=== PATIENT | female | born 1975 | race Caucasian/White ===

== ENCOUNTER 2020-05-10 20:15 | Emergency (ER) | payer BC, MEDICAID, SELFPAY ==
[2020-05-10 20:30] VITALS: BP 139/103; PULSE 72; RESP 15; TEMP 36.7; O2SAT 98; BMI 45.1
--- NOTE | 2020-05-10 20:45 | HMH.EDUTC ---
[facility] [place] Clinical Impression: Encounter for laboratory testing for COVID-19 virus Disposition: Home, Self-Care Condition on Discharge: Good Instructions: Preventing the Spread of Coronavirus Discharge Instructions Additional Instructions: *Monitor Temp, Over the counter Motrin or Tylenol as directed/as needed Tylenol every 4 hours and Motrin every 6 hours (as long as your family doctor has told you that you can take it) for fever or pain. and straight to ER if unable to lower temp less than 101.0 after medication given *Warm salt water gargles may help to soothe the throat *Throat Lozenges *Warm fluids like tea with honey may help to soothe the throat *Sleep elevated *Humidifier/Vaporizer *Flonase 2 sprays in each nostril daily but be aware that it may take 2-3 days before you notice improvement Follow up IMMEDIATELY for new or worsening symptoms or no Noticeable improvement over the next 48-72 hours. 911 for difficulty breathing or swallowing Your blood pressure was up in the clinic today make sure to follow up with your family Doctor for further evaluation You was tested for today for COVID19 your test result should be back later this evening, you may call back later this evening to see if your test results are back and the result [phone] You was given a handout with instructions for Self Quarantine and Self isolation for while you wait on test results and what to do if they are positive Referrals: Sheng Felipe [Primary Care Provider] - As needed Forms: Work/School Release Time of Disposition: 20:49 Medical Decision Making - Anthony Inquiry Pt receiving controlled substance: No Anthony was queried for this patient: No Vital Signs: 05/10/20 20:30 Temperature 98.0 F Temperature Source Oral Pulse Rate [Right Brachial] 72 Respiratory Rate 15 Blood Pressure [Right Arm] 139/103 H Blood Pressure Mean [Right Arm] 115 Blood Pressure Source [Right Arm] Automatic Cuff Blood Pressure Position [Right Arm] Sitting 02 Sat by Pulse Oximetry 98 Oxygen Delivery Method Room Air [facility] [place] HPI - General Stated complaint: wants Covid test Time Seen by Provider: 05/10/20 20:45 Mode of Arrival: Ambulatory Source of Information: Patient Limitations: No Limitations Description of Symptoms (Recalled from Triage Doc. 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 and noticed earlier today that she wasnt able to taste anything States that she thought at first it may have been allergies but then she eat a salty chip and couldnt taste it, started having runny nose and cough along with headache so she come in to get tested - Related Data Home Medications Medication Instructions Recorded Confirmed albuterol sulfate 90 mcg/actuation INHALATION 25 Days #9 g 05/14/18 07/11/18 aerosol inhaler meloxicam 15 mg tablet 15 mg PO 30 Days tab 05/14/18 07/11/18 budesonide-formoterol HFA 160 INHALATION 30 Days #10 g 07/11/18 07/11/18 mcg-4.5 mcg/actuation aerosol inhaler dextroamphetamine-amphetamine ER PO 30 Days #60 cap 07/11/18 07/11/18 20 mg 24hr capsule,extend release furosemide 20 mg tablet PO 30 Days #30 tab 07/11/18 07/11/18 montelukast 10 mg tablet PO 90 Days #90 tab 07/11/18 07/11/18 Previous Rx's Medication Instructions Recorded ibuprofen 200 mg tablet 200 mg PO ONCE #4 tab 07/11/18 naproxen 500 mg tablet 500 mg PO BID #60 tab 07/11/18 phentermine 37.5 mg tablet 37.5 mg PO DAILY #30 tab 07/11/18 Allergies Allergy/AdvReac Type Severity Reaction Status Date / Time No Known Allergies Allergy Verified 07/11/18 09:59 - Worker's Comp I
[2020-05-10 20:50] VITALS: BP 139/103; PULSE 72; RESP 15; TEMP 36.7; O2SAT 98
== END 2020-05-10 20:57 | disposition home or self-care (01) ==
PROVIDERS: Emergency Provider Nurse Practitioner; PCP Internal Medicine
DX: Z20.828 Contact with and (suspected) exposure to other viral communicable diseases (principal)
CPT/HCPCS: 99201; U0003

== ENCOUNTER 2025-02-14 06:05 | Outpatient (CLI) | payer BC, MEDICAID, SELFPAY ==
--- OUTSIDE RECORDS SUMMARY | 2025-01-16 13:45 | XMS_ITS | Encounter Summary ---
[facility] Organization [facility] Address [address] [place] [address] Care Team Providers Care Program Manager Rn Name Role Phone Sheng Felipe MD Primary Care Provider [phone] Reason for Visit * Reason Comments ADHD Med f/u Encounter Details Date Type Department Care Team (Late st Contact Info) Description 01/16/2025 1:45 PM EDT Office Visit [facility] [address] [place] [address] [place] [phone] Sheng Felipe MD [address] [place] [address] [place] [address] Attention deficit hyperactivity disorder (ADHD), combined type (Primary Dx); Prediabetes; Class 3 severe obesity due to excess calories without serious comorbidity with body mass index (BMI) of 40.0 to 44.9 in adult Social History Tobacco Use Types Packs/Day Years Used Date Smoking Tobacco: Former Cigarettes 0.3 15 2011 Smokeless Tobacco: Never Alcohol Use Standard Drinks/Week Comments No 0 (1 standard drink = 0.6 oz pur e alcohol) PHQ-2 Answer Date Recorded Retired PHQ-9: Brief Depression Severity Measure Score 0 04/03/2023 PHQ-2 Answer Date Recorded Patient Health Questionnaire-2 Score 0 09/15/2024 Comments No Sex and Gender Information Value Date Recorded Sex Assigned at Not on file Legal Sex Female 4:47 PM EST Gender Identity Not on file Sexual Orientation Not on file documented as of this encounter Last Filed Vital Signs Vital Sign Reading Time Taken Comments Blood Pressure 118/82 01/16/2025 1:40 PM EDT Pulse 83 01/16/2025 1:40 PM EDT Temperature 36.3 C (97.3 F) 01/16/2025 1:40 PM EDT Respiratory Rate 18 01/16/2025 1:40 PM EDT Oxygen Saturation 99% 01/16/2025 1:40 PM EDT Inhaled Oxygen Concentration - - Weight 117 kg (258 lb) 01/16/2025 1:40 PM EDT Height 167.6 cm (5' 6 ) 01/16/2025 1:40 PM EDT Body Mass Index 41.64 01/16/2025 1:40 PM EDT documented in this encounter Progress Notes * Sheng Felipe MD - 01/16/2025 7:47 PM EDTAssociated Problem(s): Attention deficit hyperactivity disorder (ADHD), combined type Maintaining ongoing satisfactory control of her ADHD combined type taking Adderall XR 30 mg every morning and short acting Adderall 10 mg q. noon, good duration of clinical effect with no significantside effects. UDS and controlled substance agreement up-to-date and appropriate from 08/2024. Kasperscreen appropriate. Plan continue current regimen with refills given. Reassess clinically in 3 months. * Sheng Felipe MD - 01/16/2025 7:46 PM EDTAssociated Problem(s): Prediabetes Very nice clinical response regarding her diabetes/prediabetes with most recent hemoglobin A1c 5.2%in 08/2024 taking most recently Zepbound 10 mg subcu weekly transitioning over to Wegovy 1 mg subcu weekly. Continue current regimen of healthy lifestyle efforts including diet and exercise. Plan repeat hemoglobin A1c at follow-up visit in 3 months. * Sheng Felipe MD - 01/16/2025 7:45 PM EDTAssociated Problem(s): Obesity Long standing struggles with morbid obesity, status post Star-en-Y bariatric surgery in 2003, most recently having been prescribed Zepbound 10 mg subcu weekly. She has been advised by insurance company that she now must switch over to Wegovy which will initiate at medium dose of 1 mg nightly relative to the prior Zepbound 10 mg dose, advising of side effect potential as well as mechanism of action being similar to the Zepbound. Continue healthy lifestyle efforts with diet and exercise. Reassessclinically in 1 month, advising if any concerns in the interim. * Sheng Felipe MD - 01/16/2025 1:45 PM EDT Images from the original note were not included. Follow Up Office Visit Date: 01/16/2025 Patient Name: Sherman Pacheco : 1975 Chief Complaint: Chief Complaint Patient presents with ADHD Med f/u History of Present Illness: Sherman Pacheco is a 49 y.o. female who is here today for 2-month review of her combined type ADHD for which she takes Adderall XR 30 mg every morning and 10 short acting 10 mgq. noon, having 11 or 12 hours of good control of symptoms with no significant side effects causingimproved quality of her life. Urine drug screen and controlled substance agreement up-to-date and ap propriate from 08/2024. Also has obesity for which she originally had a Star-en-Y procedure in 2003,most recently Mounjaro 10 mg subcu weekly, insurance now requires she switched to Wegovy. In general she has good appetite suppression with no side effects of the medication. She has lost 2 pounds ofweight in the last 2 months now. Also has a history of asthma taking Symbicort and singular prophylaxis, doing well with no recent flare for 2 months now, insurance not covering previously prescribedSpiriva thus not taking. She is a prediabetic with most recent hemoglobin A1c normalized to 5.2% in08/2024, albeit noting that she does take GLP-1/GIP agonist.. Subjective Review of Systems: Review of Systems I have reviewed the patients family history, social history, past medical history, past surgical history and have updated it as appropriate. Medications: Current Outpatient Medications: albuterol (PROVENTIL) (2.5 MG/3ML) 0.083% nebulizer solution, TAKE 2.5 MG BY NEBULIZATION EVERY 4 (FOUR) HOURS NEEDED FOR WHEEZING., Disp: 150 mL, Rfl: 1 albuterol sulfate HFA (Ventolin HFA) 108 (90 Base) MCG/ACT inhaler, INHALE 2 PUFFS BY MOUTH EVERY 4HOURS NEEDED FOR WHEEZE, Disp: 90 g, Rfl: 2 amphetamine-dextroamphetamine (Adderall) 10 MG tablet, Take at noon time in conjunction with her Adderall XR 30 mg in the morning, Disp: 30 tablet, Rfl: 0 amphetamine-dextroamphetamine XR (Adderall XR) 30 MG 24 hr capsule, Take 1 capsule by mouth Every Morning In conjunction with her Adderall 10 mg at noon, Disp: 30 capsule, Rfl: 0 budesonide-formoterol (Symbicort) 160-4.5 MCG/ACT inhaler, Inhale 2 puffs 2 (Two) Times a Day. Rinse mouth with water after use, Disp: 10.2 g, Rfl: 12 buPROPion XL (WELLBUTRIN XL) 300 MG 24 hr tablet, Take 1 tablet by mouth Daily., Disp: , Rfl: celecoxib (CeleBREX) 200 MG capsule, TAKE 1 CAPSULE BY MOUTH EVERY DAY, Disp: 30 capsule, Rfl: 1 dexlansoprazole (DEXILANT) 60 MG capsule, Take 1 capsule by mouth Daily., Disp: , Rfl: Diclofenac Sodium (VOLTAREN) 1 % gel gel, Apply 4 g topically to the appropriate area as directed 4(Four) Times a Day As Needed (pain)., Disp: 150 g, Rfl: 1 famotidine (PEPCID) 20 MG tablet, take 1 tablet by mouth every day at bedtime for 30 days, Disp: , Rfl: fluticasone (FLONASE) 50 MCG/ACT nasal spray, SPRAY 2 SPRAYS INTO EACH NOSTRIL EVERY DAY DIRECTED NEEDED FOR ALLERGIES, Disp: 18.2 g, Rfl: 3 hydrocortisone 2.5 % cream, Apply 1 Application topically to the appropriate area as directed 2 (Two) Times a Day., Disp: 60 g, Rfl: 1 Levonorgestrel (MIRENA, 52 MG, IU), 1 Device by Intrauterine route., Disp: , Rfl: loratadine (CLARITIN) 10 MG tablet, TAKE 1 TABLET BY MOUTH EVERY DAY, Disp: 30 tablet, Rfl: 11 montelukast (SINGULAIR) 10 MG tablet, TAKE 1 TABLET BY MOUTH EVERY DAY AT NIGHT, Disp: 90 tablet, Rfl: 3 mupirocin (BACTROBAN) 2 % cream, Apply 1 Application topically to the appropriate area as directed 3 (Three) Times a Day., Disp: 22 g, Rfl: 1 mupirocin (BACTROBAN) 2 % ointment, Apply 1 Application topically to the appropriate area as directed 3 (Three) Times a Day., Disp: 15 g, Rfl: 1 pantoprazole (Protonix) 40 MG EC tablet, Take 1 tablet by mouth Daily., Disp: 180 tablet, Rfl: 3 spironolactone (ALDACTONE) 100 MG tablet, TAKE 1 TABLET BY MOUTH EVERY DAY, Disp: 90 tablet, Rfl: 3 Tiotropium [place] Monohydrate (Spiriva Respimat) 1.25 MCG/ACT aerosol solution inhaler, Inhale 2 puffs Daily., Disp: 18 g, Rfl: 3 vitamin D (ERGOCALCIFEROL) 1.25 MG (34750 UT) capsule capsule, Take 1 capsule by mouth 1 (One) TimePer Week., Disp: 13 capsule, Rfl: 3 Semaglutide-Weight Management (Wegovy) 1 MG/0.5ML solution auto-injector, Inject 0.5 mL under the skin into the appropriate area as directed 1 (One) Time Per Week., Disp: 2 mL, Rfl: 0 Allergies: No Known Allergies Objective Physical Exam: Please see above Vital Signs: Vitals: 01/16/25 1340 BP: 118/82 BP Location: Left arm Patient Position: Sitting Cuff Size: Adult Pulse: 83 Resp: 18 Temp: 97.3 ??F (36.3 ??C) TempSrc: Temporal SpO2: 99% Weight: 117 kg (258 lb) Height: 167.6 cm (66 ) Body mass index is 41.64 kg/m??. Physical Exam Constitutional: General: She is not in acute distress. Appearance: Normal appearance. She is obese. She is not ill-appearing. Comments: Pleasant, healthy, NAD, BMI 41.6 reflecting a 2 pound weight loss in the last 2 months Cardiovascular: Rate and Rhythm: Normal rate and regular rhythm. Heart sounds: Normal heart sounds. No murmur heard. No friction rub. No gallop. Pulmonary: Effort: Pulmonary effort is normal. No respiratory distress. Breath sounds: Normal breath sounds. Musculoskeletal: Right lower leg: No edema. Left lower leg: No edema. Neurological: Mental Status: She is alert. Procedures Results: Labs: Hemoglobin A1C Date Value Ref Range Status 09/15/2024 5.2 4.5 - 5.7 % Final TSH Date Value Ref Range Status 09/15/2024 1.530 0.450 - 4.500 uIU/mL Final POCT Results (if applicable): Results for orders placed or performed in visit on 09/15/24 POC Glycosylated Hemoglobin (Hb A1C) Collection Time: 09/15/24 11:00 AM Specimen: Blood Result Value Ref Range Hemoglobin A1C 5.2 4.5 - 5.7 % Lot Number [id number] Expiration Date 05/07/2026 POC Glucose, Blood Collection Time: 09/15/24 11:01 AM Specimen: Blood Result Value Ref Range Glucose 110 70 - 130 mg/dL Lot Number [id number] Expiration Date 02/28/2025 Urinalysis With Culture If Indicated - Urine, Clean Catch Collection Time: 09/15/24 11:02 AM Specimen: Urine, Clean Catch Urine Release to hugo Result Value Ref Range Specific [place], UA 1.017 1.005 - 1.030 pH, UA 7.0 5.0 - 7.5 Color, UA Yellow Yellow Appearance, UA Clear Clear Leukocytes, UA Negative Negative Protein Negative Negative/Trace Glucose, UA Negative Negative Ketones Negative Negative Blood, UA Negative Negative Bilirubin, UA Negative Negative Urobilinogen, UA 1.0 0.2 - 1.0 mg/dL Nitrite, UA Negative Negative Microscopic Examination Comment Microscopic Examination See below: Urinalysis Reflex Comment Microscopic Examination - Collection Time: 09/15/24 11:02 AM Urine Release to hugo Result Value Ref Range WBC, UA None seen 0 - 5 /hpf RBC, UA None seen 0 - 2 /hpf Epithelial Cells (non renal) 0-10 0 - 10 /hpf Casts None seen None seen /lpf Bacteria, UA None seen None seen/Few Urine Drug Screen - Urine, Clean Catch Collection Time: 09/15/24 11:03 AM Specimen: Urine, Clean Catch Urine Release to hugo Result Value Ref Range Amphetamine, Urine Qual Positive (A) Axpzna=9760 ng/mL Barbiturates Screen, Urine Negative Qnzfek=056 ng/mL Benzodiazepine Screen, Urine Negative Vrtqid=811 ng/mL THC Screen, Urine Negative Cutoff=20 ng/mL Cocaine Screen, Urine Negative Prhgar=555 ng/mL Opiate Screen, Urine Negative Mwzzwb=808 ng/mL Oxycodone/Oxymorphone, Urine Negative Hghlwn=221 ng/mL Phencyclidine (PCP), Urine Negative Cutoff=25 ng/mL Methadone Screen, Urine Negative Kvuhsg=497 ng/mL Propoxyphene Screen Negative Ekruqh=637 ng/mL Creatinine, Urine 53.6 20.0 - 300.0 mg/dL pH, UA 6.5 4.5 - 8.9 Please note Comment Vitamin B12 Collection Time: 09/15/24 11:03 AM Specimen: Arm, Left; Blood Blood Release to hugo Result Value Ref Range Vitamin B-12 376 232 - 1,245 pg/mL TSH Rfx On Abnormal To Free T4 Collection Time: 09/15/24 11:03 AM Specimen: Arm, Left; Blood Blood Release to hugo Result Value Ref Range TSH 1.530 0.450 - 4.500 uIU/mL Folate Collection Time: 09/15/24 11:03 AM Specimen: Arm, Left; Blood Blood Release to hugo Result Value Ref Range Folate 5.1 >3.0 ng/mL Vitamin D,25-Hydroxy Collection Time: 09/15/24 11:03 AM Specimen: Arm, Left; Blood Blood Release to hugo Result Value Ref Range 25 Hydroxy, Vitamin D 8.3 (L) 30.0 - 100.0 ng/mL Lipid Panel Collection Time: 09/15/24 11:03 AM Specimen: Arm, Left; Blood Blood Release to hugo Result Value Ref Range Total Cholesterol 135 100 - 199 mg/dL Triglycerides 88 0 - 149 mg/dL HDL Cholesterol 50 >39 mg/dL VLDL Cholesterol Tushar 17 5 - 40 mg/dL LDL Chol Calc (NIH) 68 0 - 99 mg/dL Comprehensive Metabolic Panel Collection Time: 09/15/24 11:03 AM Specimen: Arm, Left; Blood Blood Release to hugo Result Value Ref Range Glucose 82 70 - 99 mg/dL BUN 16 6 - 24 mg/dL Creatinine 0.86 0.57 - 1.00 mg/dL EGFR Result 83 >59 mL/min/1.73 BUN/Creatinine Ratio 19 9 - 23 Sodium 142 134 - 144 mmol/L Potassium 4.2 3.5 - 5.2 mmol/L Chloride 106 96 - 106 mmol/L Total CO2 23 20 - 29 mmol/L Calcium 8.8 8.7 - 10.2 mg/dL Total Protein 6.9 6.0 - 8.5 g/dL Albumin 4.3 3.9 - 4.9 g/dL Globulin 2.6 1.5 - 4.5 g/dL Total Bilirubin 0.3 0.0 - 1.2 mg/dL Alkaline Phosphatase 118 44 - 121 IU/L AST (SGOT) 19 0 - 40 IU/L ALT (SGPT) 16 0 - 32 IU/L POC Albumin/Creatinine Ratio Urine Collection Time: 09/15/24 11:24 AM Specimen: Urine Result Value Ref Range POC ALBUMIN, URINE 10 mg/L POC CREATININE, URINE 50 mg/dL POC Urine Albumin Creatinine Ratio <30 <30 Lot Number [id number] Expiration Date 11/20/2025 Assessment / Plan Assessment/Plan: Diagnoses and all orders for this visit: 1. Attention deficit hyperactivity disorder (ADHD), combined type (Primary) Assessment & Plan: Maintaining ongoing satisfactory control of her ADHD combined type taking Adderall XR 30 mg every morning and short acting Adderall 10 mg q. noon, good duration of clinical effect with no significantside effects. UDS and controlled substance agreement up-to-date and appropriate from 08/2024. Kasperscreen appropriate. Plan continue current regimen with refills given. Reassess clinically in 3 months. Orders: - amphetamine-dextroamphetamine (Adderall) 10 MG tablet; Take at noon time in conjunction with her Adderall XR 30 mg in the morning Dispense: 30 tablet; Refill: 0 - amphetamine-dextroamphetamine XR (Adderall XR) 30 MG 24 hr capsule; Take 1 capsule by mouth EveryMorning In conjunction with her Adderall 10 mg at noon Dispense: 30 capsule; Refill: 0 2. Prediabetes Assessment & Plan: Very nice clinical response regarding her diabetes/prediabetes with most recent hemoglobin A1c 5.2%in 08/2024 taking most recently Zepbound 10 mg subcu weekly transitioning over to Wegovy 1 mg subcu weekly. Continue current regimen of healthy lifestyle efforts including diet and exercise. Plan repeat hemoglobin A1c at follow-up visit in 3 months. 3. Class 3 severe obesity due to excess calories without serious comorbidity with body mass index (BMI) of 40.0 to 44.9 in adult Assessment & Plan: Long standing struggles with morbid obesity, status post Star-en-Y bariatric surgery in 2003, most recently having been prescribed Zepbound 10 mg subcu weekly. She has been advised by insurance company that she now must switch over to Wegovy which will initiate at medium dose of 1 mg nightly relative to the prior Zepbound 10 mg dose, advising of side effect potential as well as mechanism of action being similar to the Zepbound. Continue healthy lifestyle efforts with diet and exercise. Reassessclinically in 1 month, advising if any concerns in the interim. Orders: - Semaglutide-Weight Management (Wegovy) 1 MG/0.5ML solution auto-injector; Inject 0.5 mL under theskin into the appropriate area as directed 1 (One) Time Per Week. Dispense: 2 mL; Refill: 0 Vaccine Counseling: Follow Up: Return in about 1 month (around 02/16/2025) for Recheck. At [facility], we believe that sharing information builds trust and better relationships. You are receiving this note because you recently visited [facility]. It is possible you will see health information before a provider has talked with you about it. This kind of information can be easy to misunderstand. To help you fully understand what it means for your health, we urge you to discussthis note with your provider. Sheng Felipe MD [facility] documented in this encounter Plan of Treatment Upcoming Encounters Date Type Department Care Team (Late st Contact Info) Description 02/17/2025 8:45 AM EDT Office Visit [facility] [address] [place] [address] [place] [phone] Sheng Felipe MD [address] [place] [address] [place] [id number] documented as of this encounter Visit Diagnoses Diagnosis Attention deficit hyperactivity disorder (ADHD), combined type- Primary Prediabetes Other abnormal glucose Class 3 severe obesity due to excess calories without serious comorbidity with body mass index (BMI) of 40.0 to 44.9 in adult documented in this encounter Care Teams Program Manager Rn Relationship Specialty Start Date End Date Sheng Felipe MD [address] [place] [address] PCP - General Internal Medicine 06/29/16 documented as of this encounter
--- OUTSIDE RECORDS SUMMARY | 2025-02-14 06:08 | XMS_ITS | Encounter Summary ---
Author Organization [facility] Address [address] [place] [address] Care Team Providers Care Electron Beam Photo Mask Maker Name Role Phone Sheng Modi MD Primary Care Provider [phone] Reason for Visit * Reason Onset Date Comments DR MODI - MEDICATION REFILL 03/08/2022 Encounter Details Date Type Department Care Team (Late st Contact Info) Description 03/08/2022 Telephone [facility] [address] [place] [address] [place] [phone] Sheng Modi MD [address] [place] [address] DR MODI - MEDICATION REFILL Social History Tobacco Use Types Packs/Day Years Used Date Smoking Tobacco: Former Cigarettes Smokeless Tobacco: Never Alcohol Use Standard Drinks/Week Comments No 0 (1 standard drink = 0.6 oz pur e alcohol) Comments No Sex and Gender Information Value Date Recorded Sex Assigned at Not on file Legal Sex Female 4:47 PM EST Gender Identity Not on file Sexual Orientation Not on file documented as of this encounter Miscellaneous Notes * Telephone Encounter - Sheng Modi MD - 03/09/2022 5:53 PM EDT Patient requires an office visit this month. Please send me prescription refills. * Telephone Encounter - Deloris Whitaker MA - 03/08/2022 2:40 PM EDT Send in please appt. For dec * Telephone Encounter - Billy Tapia RegSched Rep - 03/08/2022 1:48 PM EDT Caller: Sherman Pacheco Relationship: Self Best call back number: [phone] Requested Prescriptions: Requested Prescriptions Pending Prescriptions Disp Refills ??? amphetamine-dextroamphetamine XR (Adderall XR) 30 MG 24 hr capsule 30 capsule 0 Sig: Take 1 capsule by mouth Every Morning ??? amphetamine-dextroamphetamine XR (Adderall XR) 10 MG 24 hr capsule 30 capsule 0 Sig: Take 1 capsule by mouth Every Morning ??? albuterol sulfate HFA 108 (90 Base) MCG/ACT inhaler Sig: Inhale 2 puffs Every 4 (Four) Hours As Needed for Wheezing. Pharmacy where request should be sent: [id number] - [place] - [address] AT [address]EXT TO [facility] - [phone] - [phone] FX Additional details provided by patient: PATIENT IS COMPLETELY OUT OF BOTH THE ADDERALL MEDICATIONS Does the patient have less than a 3 day supply: [x] Yes [] No Trip Sofia Rep 03/08/22 13:49 EDT documented in this encounter Plan of Treatment Upcoming Encounters Date Type Department Care Team (Late st Contact Info) Description 02/17/2025 8:45 AM EDT Office Visit [facility] [address] [place] [address] [place] [phone] Sheng Modi MD [address] [place] [address] [place] [id number] documented as of this encounter Visit Diagnoses Diagnosis Attention deficit hyperactivity disorder, combined type Attention deficit disorder with hyperactivity Asthmatic bronchitis, mild intermittent, uncomplicated documented in this encounter Care Teams Electron Beam Photo Mask Maker Relationship Specialty Start Date End Date Sheng Modi MD [address] [place] [address] [place] [address] PCP - General Internal Medicine 06/29/16 documented as of this encounter
--- OUTSIDE RECORDS SUMMARY | 2025-02-14 06:08 | XMS_ITS | Encounter Summary ---
[facility] Address [address] [place] [address] Care Team Providers Care Cascara Bark Cutter Name Role Phone Sheng Felipe MD Primary Care Provider [phone] Reason for Visit * Reason Onset Date Comments Med Refill 12/17/2024 Encounter Details Date Type Department Care Team (Late st Contact Info) Description 12/17/2024 Refill [facility] [address] [place] [address] [place] [phone] Sheng Felipe MD [address] [place] [address] [place] [address] Attention deficit hyperactivity disorder, combined type; Attention deficit hyperactivity disorder (ADHD), combined type Social History Tobacco Use Types Packs/Day Years Used Date Smoking Tobacco: Former Cigarettes 0.3 15 1 997 - 2011 Smokeless Tobacco: Never Alcohol Use Standard [...] encounter Miscellaneous Notes * Telephone Encounter - Jailene Stein - 12/17/2024 8:37 AM EDT Last seen on 11/18/2024. TF documented in this encounter Plan of Treatment Upcoming Encounters Date Type Department Care Team (Late st Contact Info) Description 02/17/2025 8:45 AM EDT Office Visit [facility] [address] [place] [id number] Sheng Felipe MD [address] [place] [id number] documented as of this encounter Visit Diagnoses Diagnosis Attention deficit hyperactivity disorder, combined type Attention deficit disorder with hyperactivity Attention deficit hyperactivity disorder (ADHD), combined type documented in this encounter Care Teams Cascara Bark Cutter Relationship Specialty Start Date End Date Sheng Felipe MD [address] [place] [id number] PCP - General Internal Medicine 06/29/16 documented as of this encounter
--- OUTSIDE RECORDS SUMMARY | 2025-02-14 06:08 | XMS_ITS | Encounter Summary ---
[facility] Address [address] [place] [address] Care Team Providers Care Sas Programmer Remote Name Role Phone Sheng Felipe MD Primary Care Provider Reason for Visit * Reason Comments Med Refill Encounter Details Date Type Department Care Team (Late Contact Info) Description 01/08/2025 Refill [facility] [address] [place] [address] [place] [phone] Sheng Felipe MD [address] [place] [address] [place] [address] Social History Tobacco Use Types Packs/Day Years Used Date Smoking Tobacco: Former Cigarettes 0.3 15 1 2011 Smokeless Tobacco: Never Alcohol Use Standard [...] on file documented as of this encounter Plan of Treatment Upcoming Encounters Date Type Department Care Team (Late Contact Info) Description 02/17/2025 8:45 AM EDT Office Visit [facility] [address] [place] [address] [place] [phone] Sheng Felipe MD [address] [place] [address] [place] [address] documented as of this encounter Visit Diagnoses Not on filedocumented in this encounter Care Teams Sas Programmer Remote Relationship Specialty Start Date End Date Sheng Felipe MD [address] [place] [address] PCP - General Internal Medicine 06/29/16 documented as of this encounter
--- OUTSIDE RECORDS SUMMARY | 2025-02-14 06:08 | XMS_ITS | Encounter Summary ---
[facility] [address] [place] [address] Care Team Providers Care Clam Treader Name Role Phone Sheng Felipe MD Primary Care Provider Reason for Visit * Reason Comments Med Refill Encounter Details Date Type Department Care Team (Late st Contact Info) Description 11/17/2022 Refill [facility] [address] [place] [address] [place] [phone] Sheng Felipe MD [address] [place] [address] [place] [address] Asthmatic bronchitis, mild intermittent, uncomplicated Social History Tobacco Use Types Packs/Day Years Used Date Smoking Tobacco: Former Cigarettes 0.3 15 1 997 - 2011 Smokeless Tobacco: Never Alcohol Use Standard Drinks/Week Comments No 0 (1 standard drink = 0.6 oz pur e alcohol) PHQ-2 Answer Date Recorded Retired PHQ-9: Brief Depression Severity Measure Score 0 11/17/2022 Comments No Sex and Gender Information Value Date Recorded Sex Assigned at Not on file Legal Sex Female 4:47 PM EST Gender Identity Not on file Sexual Orientation Not on file documented as of this encounter Plan of Treatment Upcoming Encounters Date Type Department Care Team (Late st Contact Info) Description 02/17/2025 8:45 AM EDT Office Visit [facility] [address] [place] [address] [place] [phone] Sheng Felipe MD [address] [place] [address] [place] [address] documented as of this encounter Visit Diagnoses Diagnosis Asthmatic bronchitis, mild intermittent, uncomplicated documented in this encounter Care Teams Clam Treader Relationship Specialty Start Date End Date Sheng Felipe MD [address] [place] [address] PCP - General Internal Medicine 06/29/16 documented as of this encounter
--- OUTSIDE RECORDS SUMMARY | 2025-02-14 06:08 | XMS_ITS | Encounter Summary ---
Author Organization [facility] Address [address] [place] [address] Care Team Providers Care Air Hole Driller Name Role Phone Sheng Felipe MD Primary Care Provider [phone] Encounter Details Date Type Department Care Team (Latest Contact Info) Description 01/16/2025 Travel Social History Tobacco Use Types Packs/Day Years Used Date Smoking Tobacco: Former Cigarettes 0.3 15 1 7 2011 Smokeless Tobacco: Never Alcohol Use Standard [...] Description 02/17/2025 8:45 AM EDT Office Visit [facility] [address] [place] [id number] [facility] [place] [address] documented as of this encounter Visit Diagnoses Not on filedocumented in this encounter Care Teams Air Hole Driller Relationship Specialty Start Date End Date Sheng Felipe MD [address] [place] [address] PCP - General Internal Medicine 06/29/16 documented as of this encounter
--- OUTSIDE RECORDS SUMMARY | 2025-02-14 06:08 | XMS_ITS | Clinical Summary ---
Author Organization 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 Active budesonide-formo terol (Symbicort) 160-4.5 MCG/ACT inhalerIndicatio ns:Moderate persistent asthma without complication Inhale 2 puffs 2 (Two) Times a Day. Rinse mouth with water after use 10.2 g 12 022 Active buPROPion XL (WELLBUTRIN XL) 300 MG 24 hr tablet Take 1 tablet by mouth Daily. 023 Active albuterol (PROVENTIL) (2.5 MG/3ML) 0.083% nebulizer solutionIndicati ons:Mild intermittent asthma with exacerbation TAKE 2.5 MG BY NEBULIZATION EVERY 4 (FOUR) HOURS NEEDED FOR WHEEZING. 150 mL 1 023 Active Diclofenac Sodium (VOLTAREN) 1 % gel gelIndications:C hronic pain of right thumb Apply 4 g topically to the appropriate area as directed 4 (Four) Times a Day As Needed (pain). 150 g 1 024 Active albuterol sulfate HFA (Ventolin HFA) 108 (90 Base) MCG/ACT inhalerIndicatio ns:Mild intermittent asthma with exacerbation INHALE 2 PUFFS BY MOUTH EVERY 4 HOURS NEEDED FOR WHEEZE 90 g 2 025 Active pantoprazole (Protonix) 40 MG EC tabletIndication s:Gastroesophage al reflux disease, unspecified whether esophagitis present Take 1 tablet by mouth Daily. 180 tablet 3 025 Active vitamin D (ERGOCALCIFEROL) 1.25 MG (08247 UT) capsule capsuleIndicatio ns:Vitamin D deficiency, unspecified Take 1 capsule by mouth 1 (One) Time Per Week. 13 capsule 3 025 Active dexlansoprazole (DEXILANT) 60 MG capsule Take 1 capsule by mouth Daily. 025 Active famotidine (PEPCID) 20 MG tablet take 1 tablet by mouth every day at bedtime for 30 days 025 Active loratadine (CLARITIN) 10 MG tablet TAKE 1 TABLET BY MOUTH EVERY DAY 30 tablet 11 025 Active montelukast (SINGULAIR) 10 MG tablet TAKE 1 TABLET BY MOUTH EVERY DAY AT NIGHT 90 tablet 3 025 Active Tiotropium [place] Monohydrate (Spiriva Respimat) 1.25 MCG/ACT aerosol solution inhalerIndicatio ns:Moderate persistent asthma with acute exacerbation Inhale 2 puffs Daily. 18 g 3 025 Active mupirocin (BACTROBAN) 2 % creamIndications :Rash Apply 1 Application topically to the appropriate area as directed 3 (Three) Times a Day. 22 g 1 025 Active hydrocortisone 2.5 % creamIndications :Rash Apply 1 Application topically to the appropriate area as directed 2 (Two) Times a Day. 60 g 1 025 Active spironolactone (ALDACTONE) 100 MG tabletIndication s:Acne vulgaris TAKE 1 TABLET BY MOUTH EVERY DAY 90 tablet 3 025 Active mupirocin (BACTROBAN) 2 % ointment Apply 1 Application topically to the appropriate area as directed 3 (Three) Times a Day. 15 g 1 025 Active fluticasone (FLONASE) 50 MCG/ACT nasal sprayIndications :Seasonal allergic rhinitis due to pollen SPRAY 2 SPRAYS INTO EACH NOSTRIL EVERY DAY DIRECTED NEEDED FOR ALLERGIES 18.2 g 3 025 Active celecoxib (CeleBREX) 200 MG capsule TAKE 1 CAPSULE BY MOUTH EVERY DAY 30 capsule 1 025 Active Semaglutide-Weig ht Management (Wegovy) 1 MG/0.5ML solution auto-injectorInd ications:Class 3 severe obesity due to excess calories without serious comorbidity with body mass index (BMI) of 40.0 to 44.9 in adult Inject 0.5 mL under the skin into the appropriate area as directed 1 (One) Time Per Week. 2 mL 025 Active amphetamine-dext roamphetamine (Adderall) 10 MG tabletIndication s:Attention deficit hyperactivity disorder (ADHD), combined type Take at noon time in conjunction with her Adderall XR 30 mg in the morning 30 tablet 025 Active amphetamine-dext roamphetamine XR (Adderall XR) 30 MG 24 hr capsuleIndicatio ns:Attention deficit hyperactivity disorder (ADHD), combined type Take 1 capsule by mouth Every Morning In conjunction with her Adderall 10 mg at noon 30 capsule 025 Active Tirzepatide-Weig ht Management (ZEPBOUND) 10 MG/0.5ML solution auto-injectorInd ications:Class 3 severe obesity due to excess calories without serious comorbidity with body mass index (BMI) of 40.0 to 44.9 in adult Inject 0.5 mL under the skin into the appropriate area as directed 1 (One) Time Per Week. 6 mL 025 2024 Discontinued amphetamine-dext roamphetamine (Adderall) 10 MG tabletIndication s:Attention deficit hyperactivity disorder, combined type,Attention deficit hyperactivity disorder (ADHD), combined type Take at noon time in conjunction with her Adderall XR 30 mg in the morning 30 tablet 025 2024 Discontinued(R eorder) amphetamine-dext roamphetamine XR (Adderall XR) 30 MG 24 hr capsuleIndicatio ns:Attention deficit hyperactivity disorder, combined type,Attention deficit hyperactivity disorder (ADHD), combined type Take 1 capsule by mouth Every Morning In conjunction with her Adderall 10 mg at noon 30 capsule 025 2024 Discontinued(R eorder) Active Problems Problem Noted Date Diagnosed Date Moderate persistent asthma with acute exacerbati on 11/18/2024 Assessment & Plan (11/18/2024 11:11 AM EDT): Lingering chest congestion with occasional cough and wheeze, this despite having been prescribed a course of prednisone a month ago having some improvement not resolution of her symptoms, continue her Singulair Symbicort prophylaxis, not utilizing her Spiriva Respimat at this time. I advised her to initiate her Spiriva, give another course of prednisone, and use her albuterol inhaler as needed. Reassess clinically at her follow-up visit. Rash 11/18/2024 Assessment & Plan (11/18/2024 11:10 AM EDT): Most recent several centimeter diameter rash, erythematous on her right medial inferior breast. Patient describes having had some purulent discharge couple days ago. Does not appear to be pustular or weeping at this time. Will empirically treat with Bactroban along with hydrocortisone for pruritus. Advise if not improving over several days or for any acute worsening of symptoms in the interim. Primary osteoarthritis involving multiple joints 09/15/2024 Assessment & Plan (09/15/2024 7:46 PM EDT): Patient has generalized arthralgias involving primarily her hips knees ankles and wrists. No objective signs of inflammatory joint disease. Previously did not get symptom relief with Voltaren. Will reinitiate prior prescription Celebrex 200 mg daily, this choice given less GI irritability, monitor for any significant increase in GI side effects as well as advise if not helping her symptoms Tendinitis of thumb 09/15/2024 Assessment & Plan (09/15/2024 7:46 PM EDT): Flexor tendinitis of the right thumb. Treat with Celebrex, advising if any significant related GI symptoms or lack of clinical improvement. Gastroesophageal reflux disease 06/17/2024 Assessment & Plan (09/15/2024 7:41 PM EDT): Still has some breakthrough symptoms taking pantoprazole 40 mg daily, this potentially exacerbated by her history of Star-en-Y gastric bypass procedure, noting history of cholecystectomy. She has been prescribed Zepbound to help further augment weight loss efforts which then improved some of her dyspeptic symptoms, patient advised to notify me for any significant increase in GI symptoms on the Zepbound. She also has been referred by the provider to Dr. Odom of GI for further evaluation. Assessment & Plan (06/17/2024 1:10 PM EST): Having breakthrough symptoms taking pantoprazole 40 mg daily. We discussed potential increasing symptoms taking Wegovy, as well as having history of Star-en-Y gastric bypass procedure, history of cholecystectomy, and Celebrex ingestion. Plan increase pantoprazole to 40 mg twice daily, pursue healthy diet, discontinue Celebrex, treat topically with antacids as needed. Assess clinical response. Chronic pain of right thumb 06/17/2024 Assessment & Plan (06/17/2024 1:12 PM EST): Diagnosed with arthritis by history of the right first MCP joint. Discussion regarding possible surgery in the future which she declines at this time. Has been taking Celebrex which we will discontinue given her GERD. Try topical Voltaren gel, use Tylenol as needed Attention deficit hyperactiv ity disorder (ADHD), combined type 06/17/2024 Assessment & Plan (01/16/2025 7:47 PM EDT): Maintaining ongoing satisfactory control of her ADHD combined type taking Adderall XR 30 mg every morning and short acting Adderall 10 mg q. noon, good duration of clinical effect with no significant side effects. UDS and controlled substance agreement up-to-date and appropriate from 08/2024. Anthony screen appropriate. Plan continue current regimen with refills given. Reassess clinically in 3 months. Assessment & Plan (11/18/2024 11:09 AM EDT): Continues to maintain good clinical control of her ADHD, combined type, taking Adderall XR 30 mg every morning and short acting Adderall 10 mg q. noon, with good clinical duration of effect and no significant side effects.. Continue current regimen. UDS and controlled substance agreement current from 08/2024. Assessment & Plan (10/17/2024 10:28 AM EDT): Continues to maintain good clinical control of her ADHD, combined type, taking Adderall XR 30 mg every morning and short acting Adderall 10 mg q. noon or early afternoon. No side effects, with good clinical duration of action. Medications refilled today. Continue current regimen. UDS and controlled substance agreement current from 08/2024. Assessment & Plan (09/15/2024 7:44 PM EDT): Reports continued good clinical control of her ADHD, combined type, taking Adderall XR 30 mg every morning and short acting Adderall 10 mg q. noon or early afternoon. No side effects, with good clinical duration of action. UDS to be updated, controlled substance agreement up-to-date from 06/2024, Anthony screen appropriate, refill medications Assessment & Plan (06/17/2024 1:12 PM EST): Reports good clinical control of her ADHD, combined type, taking Adderall XR 30 mg every morning and short acting Adderall 10 mg q. noon or early afternoon. No side effects, with good clinical duration of action. UDS current, update controlled substance agreement today. Follow-up in 3 months. Situational depression 02/14/2024 Assessment & Plan (06/17/2024 1:11 PM EST): Patient had an acute situational anxiety in depression related to daughter's diagnosis of an acute myeloid leukemia in 01/2024. 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 She will plan to return back to school this spring Assessment & Plan (03/14/2024 1:02 PM EDT): Acute situational depression related to daughter's diagnosis of acute myeloid leukemia diagnosed early 01/2024, patient having remained the hospital daughters bedside during daughters hospitalization for the first month, plan subsequently for intermittent hospitalization requiring patient's assistance for her ill daughter, as well as having significant understandable exacerbation of her dysthymia with associated anxiety taking her Wellbutrin XL 300 mg daily. She feels she is coping reasonably well. Will continue current regimen for now. She is applying for [employer] for purposes of assisting her daughter, as well as disability given her exacerbation of anxiety and depressive symptoms. Assessment & Plan (02/14/2024 5:50 PM EDT): Acute situational depression related to daughter's diagnosis of acute myeloid leukemia 7 days ago, patient having remained the [facility] since daughter was admitted 7 days ago. There is plan for an extended hospitalization stay of at least a month followed by frequent outpatient visits and intermittent monthly readmissions x 7 days each for further treatment. Patient does take baseline Wellbutrin XL 300 mg daily which had controlled her symptoms well until this acute distress. She does seem to be coping reasonably well given the stress, we agreed to continue her current regimen for now. If becomes more problematic then we will testify her treatment regimen. Anticipate need for FMLA and disability due to acute stress reaction and depression for at least 4 months with appropriate forms to be filled out once provided. Anxiety in acute stress reaction 02/14/2024 Assessment & Plan (06/17/2024 1:11 PM EST): Patient had an acute situational anxiety in depression related to daughter's diagnosis of an acute myeloid leukemia in 01/2024. 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 She will plan to return back to school this spring Assessment & Plan (03/14/2024 1:02 PM EDT): Acute situational depression related to daughter's diagnosis of acute myeloid leukemia diagnosed early 01/2024, patient having remained the [facility] during daughters hospitalization for the first month, plan subsequently for intermittent hospitalization requiring patient's assistance for her ill daughter, as well as having significant understandable exacerbation of her dysthymia with associated anxiety taking her Wellbutrin XL 300 mg daily. She feels she is coping reasonably well. Will continue current regimen for now. She is applying for FMLA for purposes of assisting her daughter, as well as disability given her exacerbation of anxiety and depressive symptoms. Assessment & Plan (02/14/2024 5:51 PM EDT): Acute situational depression related to daughter's diagnosis of acute myeloid leukemia 7 days ago, patient having remained the hospital daughters bedside since daughter was admitted 7 days ago. There is plan for an extended hospitalization stay of at least a month followed by frequent outpatient visits and intermittent monthly readmissions x 7 days each for further treatment. Patient does take baseline Wellbutrin XL 300 mg daily which had controlled her symptoms well until this acute distress. She does seem to be coping reasonably well given the stress, we agreed to continue her current regimen for now. If becomes more problematic then we will testify her treatment regimen. Anticipate need for FMLA and disability due to acute stress reaction and depression for at least 4 months with appropriate forms to be filled out once provided. Skin lesion of right arm 12/19/2023 Assessment & Plan (12/19/2023 2:51 PM EDT): Nonspecific raised skin lesion right distal dorsal forearm. Potentially represents a benign mole, or actinic keratosis, less likely representing skin cancer. Will refer to dermatology for further evaluation. Pain of upper abdomen 12/19/2023 Assessment & Plan (12/19/2023 2:48 PM EDT): Patient describes several episodes of upper abdominal discomfort more in the epigastrium with radiation to one of the other shoulder, not necessarily triggered by eating but exacerbated by same, history of Star-en-Y gastric bypass procedure 20 years prior, differential would include atypical dyspepsia noting she does not have direct food delivery to the stomach given her bypass surgery, also potential but low likelihood of pancreatitis with minimal nausea, and gallbladder dysfunction. Will obtain right upper quadrant ultrasound, CBC CMP and lipase and initiate empiric Protonix 40 mg daily. Assess clinical response and await test results making further recommendations accordingly. Carpal tunnel syndrome of right wrist 07/10/2023 Mild intermittent asthma without complication Assessment & Plan (03/14/2024 1:03 PM EDT): Seasonal symptoms, currently asymptomatic not currently taking her Symbicort and Singulair prophylaxis. She will restart in 05/2024 prior to her more typical season in the winter, advising if problems in the interim. Screen for colon cancer 07/10/2023 Screening for thyroid disorder 07/10/2023 Acute bronchitis 07/10/2023 Preop examination 07/10/2023 Encounter for general adult medical examination with abnormal findings 07/10/2023 Assessment & Plan (09/15/2024 7:42 PM EDT): Pleasant 49-year-old female presenting for complete physical with specific health issues being addressed as detailed below health maintenance includes mammogram current in 05/2024, colonoscopy current in 08/2023 with a 5-year follow-up recommended, Pap smear last in 06/2022 with impending evaluation by gynecology, all standard vaccinations up-to-date, advised update diabetic eye evaluation, update screening labs, tentative follow-up in 1 month for evaluation of her initiation of Zepbound in place of her Wegovy, advising of any concerns in the interim Bilateral hip pain 07/10/2023 Mild intermittent asthma with acute exacerbation 07/10/2023 Assessment & Plan (10/17/2024 10:26 AM EDT): Longstanding asthma historically well treated with Symbicort 160 at 2 pasta twice daily, Spiriva Respimat at 1.25 mcg 2 inhalation daily and Singulair 10 mg nightly. She has an acute viral URI which has caused a mild asthma flare. Treat with prednisone, and use her albuterol Hailer along with her regular prophylactic meds. Advise if symptoms not improving over the next 5 to 7 days or for any acute worsening of symptoms in the interim. Acute pharyngitis 06/22/2023 Viral URI with cough 06/22/2023 Assessment & Plan (10/17/2024 10:24 AM EDT): 1 week of gradually improving URI type symptoms, likely viral in etiology, associate with an asthma flare. Treat asthma as detailed below, treat symptomatically with Bromfed-DM, along with plenty fluids, advised if not gradually improving over the next several days or for any acute worsening of symptoms in the interim. Encounter for IUD insertion 04/03/2023 Right carpal tunnel syndrome 04/03/2023 Influenza vaccine administered 04/03/2023 Encounter for screening mamm ogram for malignant neoplasm of breast 04/03/2023 Need for prophylactic vaccin ation against Streptococcus pneumoniae (pneumococcus) 04/03/2023 Intrinsic asthma without status asthmaticus 12/30 Mild intermittent asthma with exacerbation 10/18 Assessment & Plan (10/01/2023 12:37 PM EDT): Longstanding asthma, historically having very satisfactory control taking Singulair 10 mg nightly and Symbicort 160 at 2 puffs twice daily maintenance. She is having a slight flareup of her asthma with the ongoing spring season, for which we will add prednisone 20 mg twice daily x 6 days, continue her current asthma prophylactic medications and adding albuterol. Advise if symptoms not settling down, and if this is the case, we will consider adding Spiriva maintenance. Has stopped smoking multiple years ago. Acne vulgaris 03/23/2022 Arthralgia of knee 03/23/2022 B12 deficiency 03/23/2022 Assessment & Plan (09/15/2024 7:35 PM EDT): Not currently taking oral replacement, history of Star-en-Y gastric bypass procedure. Update level. Constipation, unspecified 03/23/2022 Dyslipidemia 03/23/2022 Overview (03/23/2022): RESOLVED Assessment & Plan (09/15/2024 7:34 PM EDT): Not currently taking cholesterol-lowering medication. Update lipid profile and make further recommendation accordingly Elevated blood pressure read ing without diagnosis of hypertension 03/23/2022 Moderate persistent asthma, uncomplicated 2021 Assessment & Plan (09/15/2024 7:44 PM EDT): Please to clinically do well with no recent exacerbations taking Symbicort 160 at 2 puffs twice daily, Spiriva Respimat 1.25 mcg at 2 inhalations daily, and Singulair 10 mg nightly Assessment & Plan (12/19/2023 2:51 PM EDT): Clinically doing well with no recent exacerbations taking Symbicort 160 at 2 puffs twice daily, Spiriva Respimat 1.25 mcg at 2 inhalations daily, and Singulair 10 mg nightly Obesity 03/23/2022 Overview (10/01/2023): History of Star-en-Y bariatric surgery 2003, currently supplemented by Wegovy 2.4 mg subcu weekly. Assessment & Plan (01/16/2025 7:45 PM EDT): Long standing struggles with morbid obesity, status [...] healthy lifestyle efforts with diet and exercise. Reassess clinically in 1 month, advising if any concerns in the interim. Assessment & Plan (11/18/2024 7:21 PM EDT): Long standing struggles with morbid obesity, status post Star-en-Y bariatric surgery in 2003, most recently having been prescribed Zepbound 7.5 mg subcu weekly, having run out 1 month ago, having some insurance problems. She has been advised by her insurance company that after December 30 that her Zepbound will no longer be covered and that she will have to switch over to Wegovy, as she best understands it. We have agreed subsequently to increase her Zepbound to 10 mg subcu weekly for the time interval, reassessing in 1 month and tentatively increasing again to 12.5 mg then the following month 15 mg as tolerated and is covered by her insurance. Ultimately likely have to switch her over to Wegovy at a comparable dose. Continue healthy lifestyle efforts. Addendum: Patient contacted me after she left the office indicating she would now like to receive a prescription for about 10 mg subcu weekly for 3-month supply as a single co-pay rather than increasing on a monthly basis as we discussed, reassessing in 3 months rather than 1 month. Will change her prescription and recommended follow- up accordingly Assessment & Plan (10/17/2024 10:26 AM EDT): Patient continues with longstanding struggles with obesity, status post Star-en-Y bariatric surgery in 2003, most recently having been prescribed Wegovy 2.4 mg subcu weekly which she has not been taking for several doses given cost given high medical deductible, though after consideration of cost, patient had wanted to reinitiate GLP-1 agonist, requesting switch over to a trial of Zepbound. We discussed there is not a milligram to milligram equivalent switching from Wegovy to Zepbound, thus patient was started on Zepbound 7.5 mg subcu weekly on 09/15/2024, having a 9 pound weight loss in the last month, with excellent tolerance. She continues to pursue healthy diet though we will be increasing her exercise with her upcoming warmer weather. Plan increase Zepbound up to 10 mg subcu weekly, reassessing clinically in another month. Advise if any concern in the interim. Assessment & Plan (09/15/2024 7:39 PM EDT): Patient continues with longstanding struggles with obesity, status post Star-en-Y bariatric surgery in 2003, most recently having been prescribed Wegovy 2.4 mg subcu weekly which she has not been taking for several doses given cost given high medical deductible, though after considering options, wishes to reinitiate GLP-1 agonist, requesting switch over to a trial of Zepbound. We discussed there is not a milligram to milligram equivalent switching from Wegovy to Zepbound, thus we will conservatively initiate Zepbound at 7.5 mg subcu weekly reassessing clinically in 1 month, advising of clinical side effects as well as mechanisms of action, with patient to advise for any concerns. Of note she does have a history of some dyspepsia, and it is being referred to Dr. Odom of GI by another provider for further evaluation. Per her account her symptoms preceded initiation of Wegovy, and have not really changed since she stopped the Wegovy several weeks ago. Will monitor cautiously with the initiation of Zepbound. Continue current regimen with efforts at ongoing lifestyle change with portion control, healthy food choices, and regular physical activity which patient indicates she is pursuing on all measures. Assessment & Plan (06/17/2024 1:10 PM EST): Patient with longstanding struggles with obesity, status post Star-en-Y bariatric surgery in 2003, currently on supplemental Wegovy 2.4 mg subcu weekly, noted 5 pound weight loss in the last 3 months, continue current regimen with efforts at ongoing lifestyle change with portion control, healthy food choices, and regular physical activity which patient indicates she is pursuing on all measures. Continue Wegovy 0.4 mg subcu maintenance for now Assessment & Plan (10/01/2023 12:34 PM EDT): Patient with longstanding struggles with obesity, status post Star-en-Y bariatric surgery in 2003, currently on supplemental Wegovy 2.4 mg subcu weekly, maintaining her weight, continue current regimen with efforts at ongoing lifestyle change with portion control, healthy food choices, and regular physical activity which patient indicates she is pursuing on all measures. Continue Wegovy 0.4 mg subcu maintenance for now Onychomycosis 03/23/2022 Overview (03/23/2022): Multi-toenail onychomycosis Other iron deficiency anemias 03/23/2022 Pain in left ankle and joints of left foot 03/23 Pain in left knee 03/23/2022 Pain in left leg 03/23/2022 Pain in right knee 03/23/2022 Pain of left heel 03/23/2022 Overview (03/23/2022): compatible with plantar fasciitis Pain of right thumb 03/23/2022 Overview (03/23/2022): suspected flexor tendinitis Personal history of colonic polyps 03/23/2022 Overview (09/15/2024): Most recent colonoscopy 08/2023, 5-year follow-up recommended Assessment & Plan (09/15/2024 7:40 PM EDT): Most recent colonoscopy 08/2023 with 5-year follow-up recommended given personal history of colon polyps Prediabetes 03/23/2022 Overview (09/15/2024): Hemoglobin A1c 5.3% in 07/2023, 5.1% in 03/2024 on Wegovy, 5.2% in 08/2024 Assessment & Plan (01/16/2025 7:46 PM EDT): Very nice clinical response regarding her diabetes/prediabetes with most recent hemoglobin A1c 5.2% in 08/2024 taking most recently Zepbound 10 mg subcu weekly transitioning over to Wegovy 1 mg subcu weekly. Continue current regimen of healthy lifestyle efforts including diet and exercise. Plan repeat hemoglobin A1c at follow-up visit in 3 months. Seasonal allergic rhinitis due to pollen 022 Assessment & Plan (11/18/2024 10:57 AM EDT): Continues to have satisfactory control of her seasonal allergies taking Singulair Flonase and loratadine. Continue current regimen. Assessment & Plan (10/01/2023 12:32 PM EDT): Mild flare of her seasonal allergies, taking Singulair 10 mg daily, Flonase 2 sprays each nostril daily as needed, and loratadine 10 mg daily. Overall satisfactory control Type 2 diabetes mellitus without complication Overview (10/01/2023): Diet-controlled diabetes, with most recent hemoglobin A1c 5.7% on 01/29/2020, hemoglobin A1c 5.3% in 07/2023 Assessment & Plan (10/01/2023 12:35 PM EDT): Patient has had longstanding diagnosis of diabetes mellitus type 2, no known secondary sequelae, currently on diet control having had significant improvement in her hemoglobin A1c down to 5.3% in 07/2023 with lifestyle changes and benefit of Wegovy therapy. Will follow-up every 6 months. Continue healthy lifestyle efforts with Wegovy 2.4 mg subcu weekly maintenance. Vitamin D deficiency, unspecified 03/23/2022 Assessment & Plan (10/17/2024 10:27 AM EDT): Lab testing 1 month ago revealed suboptimal replacement of her of her vitamin D deficiency, thus was switched over to high-dose vitamin D 50,000 IU once monthly. Assessment & Plan (09/15/2024 7:39 PM EDT): Taking 2000 IU daily. Update level Resolved Problems Problem Noted Date Diagnosed Date Resolved Date Attention deficit hyperactiv ity disorder, combined type 11/18/2024 01/16/2025 Attention deficit hyperactiv ity disorder (ADHD), combined type 03/14/2024 06/17/2024 Assessment & Plan (03/14/2024 12:58 PM EDT): Medically doing well with combination of Adderall XR 30 mg plus short acting Adderall 10 mg and staggered dosing interval, getting 10 to 12 hours a good clinic results with no side effects. UDS current and appropriate from 08/2023, controlled substance agreement current from 07/2023. Continue current regimen. Dysthymia 03/14/2024 03/14/2024 Anxiety 03/14/2024 03/14/2024 Attention deficit hyperactiv ity disorder, combined type 03/23/2022 09/15/2024 Overview (10/01/2023): UDS current from 07/2023, controlled substance agreement current from 10/2022 Assessment & Plan (12/19/2023 2:50 PM EDT): Generally has satisfactory control of her symptoms taking Adderall XR 40 mg total dose daily, being prescribed individually 30 mg and 10 mg tablets. She indicates now that her insurance will only cover a single Adderall XR dose regimen. Will try switching Adderall XR regimen to 20 mg at 2 tablets daily, and if this is not covered by insurance then switch back to Adderall XR 30 mg daily and an additional short acting Adderall 10 mg daily. Reassess clinically in 3 months otherwise. Controlled substance agreement current from 07/2023, UDS up-to-date from 08/2023. Assessment & Plan (10/02/2023 5:23 PM EDT): Patient overall has had very satisfactory clinical control of her ADHD, combined type, taking combination of Adderall XR 30 mg daily plus supplemental Adderall XR 10 mg daily, although she does note currently her insurance is blocking it paying for both products. We did contact [facility] and it appears this is more cost effective for her and we will refer her prescription to that pharmacy. Most recent UDS satisfactory from 07/2023, controlled substance agreement current from 10/2022. Continue current regimen of Adderall XR 30 mg daily plus Adderall XR 10 mg daily. Hypertension 03/23/2022 10/18/2022 Overview (03/23/2022): RESOLVED Encounters Date Type Department Care Team Description 01/16/2025 1:45 PM EDT Office Visit [facility] [address] [place] [address] [place]ANC[place] [phone] Sheng Felipe MD Attention deficit hyperactivity disorder (ADHD), combined type (Primary Dx); Prediabetes; Class 3 severe obesity due to excess calories without serious comorbidity with body mass index (BMI) of 40.0 to 44.9 in adult 01/16/2025 Travel 01/08/[address] [facility] [address] [place] [address] [place] SANC[place] [phone] Sheng Felipe MD 12/17/[address] [facility] [address] [place] [address] [place] SANCHEZ [phone] Sheng Felipe MD Attention deficit hyperactivity disorder, combined type; Attention deficit hyperactivity disorder (ADHD), combined type 12/08/[address] [facility] [phone] Sheng Felipe MD Seasonal allergic rhinitis due to pollen 11/19/[address] [facility] [place] [phone] Sheng Felipe MD 11/18/2024 9:15 AM EDT Office Visit [facility] [address] [place] [address] [place] [address] Sheng Felipe MD Class 3 severe obesity due to excess calories without serious comorbidity with body mass index (BMI) of 40.0 to 44.9 in adult (Primary Dx); Attention deficit hyperactivity disorder (ADHD), combined type; Seasonal allergic rhinitis due to pollen; Moderate persistent asthma with acute exacerbation; Rash 11/18/[address] [facility] [address] [place] [address] Sheng Felipe MD 11/18/[address] [facility] [address] [place] [address] [place] [address] Sheng Felipe MD Attention deficit hyperactivity disorder, combined type; Attention deficit hyperactivity disorder (ADHD), combined type 11/18/[address] [facility] [address] [place] [address] [place] [address] Sheng Felipe MD Acne vulgaris 11/18/2024 Travel 11/14/[address] [facility] [address] [place] [address] [place] [address] Sheng Felipe MD Attention deficit hyperactivity disorder, combined type; Attention deficit hyperactivity disorder (ADHD), combined type from Last 3 Months Immunizations Immunization Administration Dates Next Due COVID-19 (MODERNA) 1st,2nd,3rd Dose Monovalent 0 08/21/2020,07/24/2020 COVID-19 (PFIZER) 12YRS+ (COMIRNATY) 06/17/2024 Flu Vaccine Quad PF >36MO 04/22/2021 Fluzone >6mos 03/14/2024 Fluzone (or Fluarix & Flulaval for VFC) >6mos ,04/22/2021 Fluzone Quad >6mos (Multi-dose) 03/09/2022 Hepatitis A 11/14/2017 Influenza TIV (IM) 04/30/2020,03/08/2018 Pneumococcal Conjugate 20-Valent (PCV20) 023 Tdap 04/30/2020,01/18/2017 Family History Medical History Relation Name Comments ADD / ADHD Daughter 1 Depression Daughter 1 ADD / ADHD Daughter 2 Asthma Daughter 2 No Known Problems Daughter 3 Asthma Father Dementia Father Hypertension Father Stroke Father Heart disease Maternal Grandfather Heart disease Maternal Grandmother Breast cancer Mother Cancer Mother Diabetes Mother Hypertension Mother Other Mother DYSLIPIDEMIA Anuerysm Paternal Grandmother Relation Name Status Comments Daughter 1 Alive Daughter 2 Alive Daughter 3 Alive Father Alive Maternal Grandfather Maternal Grandmother Mother (Age 53) Paternal Grandfather fr om a drowning accident at a young age Paternal Grandmother (Age 83) Social History Tobacco Use Types Packs/Day Years Used Date Smoking Tobacco: Former Cigarettes 0.3 15 1 2011 Smokeless Tobacco: Never Tobacco Cessation:Counseling Given: Not Answered Alcohol Use Standard Drinks/Week Comments No 0 [...] on file Sexual Orientation Not on file Last Filed Vital Signs Vital Sign Reading [...] Mass Index 41.64 01/16/2025 1:40 PM EDT Plan of Treatment Upcoming Encounters Date Type Department Care Team (Late st Contact Info) Description 02/17/2025 8:45 AM EDT Office Visit [facility] [address] [place] [address] [place] SANC[place] [phone] Sheng Felipe MD [address] [place] [address] [place] SANCHEZ [id number] Health Maintenance Due Date Last Done Comments Hepatitis B (1 of 3 - 19+ 3- dose series) 1995 COLOGUARD 2021 COLON CANCER SCREENING 5 YEA [address] SIGMOID[address]COPY [address] COLONOGRAPHY 2021 FECAL OCCULT BLOOD TEST 2021 FIT Testing (1 year) 2021 Annual Gynecologic Pelvic an d Breast Exam 06/28/2022 06/27/2021 HEMOGLOBIN A1C 03/18/2025 09/15/2024, 03/02, 07/10/2023, Additional history exists INFLUENZA VACCINE 04/01/2025 03/14/2024, , 03/09/2022, Additional history exists DIABETIC EYE EXAM 05/16/2025 05/16/2024 PAP SMEAR 06/01/2025 06/01/2022, 07/2018 (Patient-Reported (Performed Externally)) ANNUAL PHYSICAL 09/15/2025 09/15/2024, 03/2024, 06/27/2021 DIABETIC FOOT EXAM 09/15/2025 09/15/2024, 0 09/15/2024, 09/15/2024, Additional history exists URINE MICROALBUMIN-CREATININ E RATIO (uACR) 09/15/2025 09/15/2024, 08/10/2023, 05/03/2020 MAMMOGRAM 05/09/2026 05/09/2024, 12/2022, 05/19/2022, Additional history exists COLONOSCOPY 09/06/2028 09/07/2023, 0 01/2024, 10/11/2018 COLORECTAL CANCER SCREENING 09/06/2028 TDAP/TD VACCINES (3 - Td or Tdap) 04/30/2030 020, 01/18/2017 HEPATITIS C SCREENING Completed 06/27/2022 Pneumococcal Vaccine 0-49 Completed 04/03/2023 COVID-19 Vaccine Completed 06/17/2024, , 07/24/2020 Procedures Procedure Name Priority Date/Time Associated Diagnosis Comments POC ALBUMIN/CREATININE RATIO Routine 09/15/2024 11:24 AM EDT Encounter for general adult medical examination with abnormal findings Prediabetes POCT GLYCOSYLATED HEMOGLOBIN (HGB A1C) Routine 09/15/2024 11:00 AM EDT Encounter for general adult medical examination with abnormal findings Prediabetes SCANNED - MAMMO 05/09/2024 SCANNED - COLONOSCOPY 09/07/2023 HEPATITIS C ANTIBODY Routine 06/27/2022 1:55 PM EST from Last 3 Months or Most Recently Relevant to Health Maintenance Results * POC Albumin/Creatinine Ratio Urine (09/15/2024 11:24 AM EDT) POC ALBUMIN, URINE 10 mg/L POC CREATININE, URINE 50 mg/dL POC Urine Albumin Creatinine Ratio <30 <30 Lot Number [id number] Expiration Date 11/20/2025 Urine 09/15/2024 11:2 4 AM EDT us Sheng Felipe MD POINT OF CARE TEST ORDERABLES Final Result * POC Glycosylated Hemoglobin (Hb A1C) (09/15/2024 11:00 AM EDT) Hemoglobin A1C 5.2 4.5 - 5.7 % [facility] Lot Number [id number] [facility] Expiration Date 05/07/2026 [facility] Blood 09/15/2024 11:0 0 AM EDT us Sheng Felipe MD POINT OF CARE TEST ORDERABLES Final Result [facility]
[address] [place] [address], * MAMMO Scan (05/09/2024) Anatomical Region Laterality Modality Other us Sheng Felipe MD CHART REVIEW TABS Final Res ult * Colonoscopy, Scan (09/07/2023) us Sheng Felipe MD CHART REVIEW TABS Final Res ult * Hepatitis C Antibody (06/27/2022 1:55 PM EST) Hep C Virus Ab 0.1 0.0 - 0.9 s/co ratio [facility] Comment: Negative: < 0.8 Indeterminate: 0.8 - 0.9 Positive: > 0.9 HCV antibody alone does not differentiate between previous resolved infection and active infection. The CDC and current clinical guidelines recommend that a positive HCV antibody result be followed up with an HCV RNA test to support the diagnosis of acute HCV infection. [facility] offers Hepatitis C Virus (HCV) RNA, Diagnosis, ROSALES ([id number]) and Hepatitis C Virus (HCV) Antibody with reflex to Quantitative Real-time PCR ([id number]). 06/27/2022 1:55 PM EST 06/27/2022 Comment:Urine Narrative [facility] - 06/29/2022 6:06 AM EST Performed at: - [address] [id number] Aircraft Technician: Cheng Martinez PhD, Phone: [phone] us Sheng Felipe MD LAB BLOOD ORDERABLES Final Res ult [facility] [address] [place] [address], [facility] [address] [place] [address], from Last 3 Months or Most Recently Relevant to Health Maintenance Insurance [facility] [employer] Care Teams Theatrical Rigger Relationship Specialty Start Date End Date Sheng Felipe MD [address] [place] [address] [place] [address] PCP - General Internal Medicine 06/29/16
[2025-02-14 06:37] LABS: Hematocrit 37.2 % (37.0-47.0); Hemoglobin 12.3 g/dL (12.2-16.2); Immature Granulocytes % 0.2 %; Mean Corpuscular HGB Conc 33.1 g/dL (31.8-35.4); Mean Corpuscular Hemoglobin 30.8 pg (27.0-31.2); Mean Corpuscular Volume 93.2 fl (81-99); Nucleated Red Blood Cells % 0 %; Platelet Count 242 K/mm3 (142-424); Red Blood Count 3.99 M/mm3 (4.20-5.40); Red Cell Distribution Width-SD 42.6 fL; White Blood Count 5.7 K/mm3 (4.8-10.8)
[2025-02-14 07:00] LABS: Hemoglobin A1C 5.1 % (4.0-6.0)
[2025-02-14 08:16] LABS: Albumin Level 4.0 g/dl (3.5-5.0); Chloride 108 mmol/L (98-107); Potassium 4.6 mmoL/L (3.5-5.1); Sodium 143 mmol/L (136-145)
[2025-02-14 08:18] LABS: Blood Urea Nitrogen 11 mg/dl (7-17); Creatinine,Serum 0.80 mg/dl (0.52-1.04); Estimated Glomerular Filt Rate 77 ml/min (>60); GFR (African American) 93 ML/MIN (>60)
[2025-02-14 08:19] LABS: Alanine Aminotransferase 20 U/L (12-78); Albumin/Globulin Ratio 1.7 (1.1-1.8); Alkaline Phosphatase 95 U/L (38-126); Anion Gap 11.6 mEq/L (5-15); Aspartate Amino Transferase 28 U/L (14-36); Bilirubin,Total 0.5 mg/dl (0.2-1.3); Calcium 9.1 mg/dl (8.4-10.2); Carbon Dioxide 28 mmol/L (22.0-30.0); Globulin 2.3 g/dL (1.3-3.2); Glucose 83 mg/dl (74-100); Total Protein,Serum 6.3 g/dl (6.3-8.2)
[2025-02-14 08:37] LABS: 25-OH Vitamin D, Total 33.7 ng/mL (30-100)
[2025-02-14 08:49] LABS: Thyroid Stimulating Hormone 1.27 uIU/mL (0.465-4.68)
[2025-02-15 09:10] LABS: FSH 54.0 mIU/mL (.); LH 30.1 mIU/mL (.)
[2025-02-15 12:17] LABS: Cortisol,AM 14.4 ug/dL (6.2-19.4)
== END 2025-02-14 23:59 | disposition home or self-care (01) ==
LOC: LAB 06:06
PROVIDERS: PCP Internal Medicine; Visit Provider Obstetrics & Gynecology
DX: M25.559 Pain in unspecified hip (principal); N95.1 Menopausal and female climacteric states
CPT/HCPCS: 36415; 80053; 82306; 82533; 82670; 83001; 83002; 83036; 84144; 84443; 85025